=== PATIENT | female | born 1975 | race Caucasian/White ===

== ENCOUNTER 2017-10-28 02:45 | Observation (INO) | payer OTHER ==
[~2017-10-28] VITALS: Ht 170.2 cm; Wt 59.0 kg
[~2017-10-28 02:45] MED LIST: DEXILANT60 MG PO; ZOFRAN ODT4 M1 SL
--- NOTE | 2017-10-28 03:34 | ED GI/GU/ABDOMINAL COMPLAINT ---
History of Present Illness General Chief Complaint: General Adult Stated Complaint: ABD PAIN THAT RADIATES TO BACK PER PT Source: patient, old records Exam Limitations: no limitations Vital Signs & Intake/Output Vital Signs & Intake/Output Vital Signs Date Time Temp Pulse Resp B/P B/P Pulse O2 O2 Flow FiO2 Mean Ox Delivery Rate 10/28 0254 97.5 85 20 131/58 99 Room Air Allergies Coded Allergies: NO KNOWN ALLERGIES (10/05/15) Reconcile Medications Ondansetron (Zofran Odt) 4 MG TAB.RAPDIS 1 TAB SL TID PRN NAUSEA Triage Note: 42YO FEMALETO RM 5 W/CO UPPER ABD PAIN THAT RADIATES TO BACK SINCE TUESDAY. STATES SHE "SAW HER PMD YESTERDAY, HAD BLOODWORKDRAWN AND IS SCHED FOR US NEXT WEEK" Triage Nurses Notes Reviewed? yes LMP (ages 10-50): unknown ? n Is pt currently ? No Onset: Last week Duration: hour(s):, constant, continues in ED Timing: recent history Quality/Severity: aching, moderate, severe Location: epigastric Radiation: back Activities at Onset: sleep Prior Abdominal Problems: none Past Sexual History: Unobtainable at this time Modifying Factors: Improves With: rest. Worsens With: palpation. Associated Symptoms: abdominal pain HPI: 1 week prior to admission patient had episode of epigastric pain described as achy mild to moderate lasting a short period of time and resolving with rest. Prior to admission she woke with moderate to severe epigastric pain waxing and waning radiating to her back. She denies fever chills nausea vomiting diarrhea chest pain cough shortness breath headache dysuria rash bleeding. Past History Travel History Traveled to [place] past 21 day No Medical History Any Pertinent Medical History? 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 No Review of Systems Review of Systems Constitutional: Reports: no symptoms. EENTM: Reports: no symptoms. Respiratory: Reports: no symptoms. Cardiovascular: Reports: no symptoms. GI: Reports: see HPI, abdominal pain. Genitourinary: Reports: no symptoms. Musculoskeletal: Reports: no symptoms. Skin: Reports: no symptoms. Neurological/Psychological: Reports: no symptoms. Hematologic/Endocrine: Reports: no symptoms. Immunologic/Allergic: Reports: no symptoms. All Other Systems: Reviewed and Negative Physical Exam Physical Exam General Appearance: well developed/nourished, alert, awake, anxious, mild distress, thin Head: atraumatic, normal appearance Eyes: Bilateral: normal appearance, PERRL, EOMI, normal inspection. Ears, Nose, Throat, Mouth: hearing grossly normal, moist mucous membrane Neck: normal inspection, supple, full range of motion, normal alignment Respiratory: normal breath sounds, chest non-tender, no respiratory distress, quiet respiration, lungs clear Cardiovascular: regular rate/rhythm, normal peripheral pulses, norml femoral pulses equa Peripheral Pulses: 4+ carotid (R), 4+ carotid (L) Gastrointestinal: normal bowel sounds, soft, non-tender, no organomegaly Back: normal inspection, normal range of motion, no vertebral tenderness Extremities: normal range of motion, no ligament instability Neurologic/Psych: no motor/sensory deficits, awake, alert, oriented x 3, normal gait, normal mood/affect, mental health specialist II-XII nml as tested Skin: intact, normal color, warm/dry Core Measures ACS in differential dx? No Sepsis Present: No Sepsis Focused Exam Completed? No Progress Differential Diagnosis: biliary colic, cholecystitis, gastritis, PUD/GERD Plan of Care: Orders Procedure Date/time Status URINALYSIS 10/28 032 Complete LIPASE 10/28 0324 Complete HUMAN BETA HCG SCREEN 10/28 032 Complete COMPREHENSIVE METABOLIC PANEL 10/28 032 Complete CBC WITHOUT DIFFERENTIAL 10/28 032 Active Current Medications Sig/Praful Start time Last Medication Dose Stop Time Status Admin Dextrose/Sodium 1,000 ML Q8H 10/28 0615 AC Chloride (D5W-1/2 Normal Saline 1000ML) Laboratory Tests 10/28/17 0350: Anion Gap 10, Estimated GFR > 60, BUN/Creatinine Ratio 17.5, Glucose 101 H, Calcium 9.7, Total Bilirubin 0.5, AST 19, ALT 31, Alkaline Phosphatase 48, Total Protein 6.6, Albumin 4.0, Globulin 2.6, Albumin/Globulin Ratio 1.5, Lipase 59, Total Beta HCG NEGATIVE, CBC w Diff Pending, RBC 4.24, MCV 94.3, MCH 32.3 H, MCHC 34.3, RDW 12.5, MPV 8.2, Gran % 77.8 H, Lymphocytes % 11.3 L, Monocytes % 6.5, Eosinophils % 4.2, Basophils % 0.2, Absolute Granulocytes 11.1 H, Absolute Lymphocytes 1.6, Absolute Monocytes 0.9 H, Absolute Eosinophils 0.6, Absolute Basophils 0.0 10/28/17 0341: Urine Color STRAW, Urine Clarity HAZY H, Urine pH 6.5, Ur Specific [place] <= 1.005, Urine Protein NEG, Urine Ketones NEG, Urine Nitrite NEG, Urine Bilirubin NEG, Urine Urobilinogen 0.2, Ur Leukocyte Esterase NEG, Ur Microscopic SEDIMENT EXAMINED, Urine RBC 5-10 H, Ur Epithelial Cells FEW, Urine Bacteria RARE H, Urine Hemoglobin LARGE H, Urine Glucose NEG Diagnostic Imaging: Viewed by Me: CT Scan. Discussed w/RAD: CT Scan. Radiology Impression: Appendicitis with appendicoliths without drainable fluid collections. Moderate amount of pelvic free fluid. Mild bilateral pelviectasis. Initial ED EKG: none Departure Departure Disposition: STILL A PATIENT Condition: Stable Clinical Impression Primary Impression: Appendicitis Referrals: Mich CHAUHAN,Thomas (PCP/Family) Departure Forms: Customer Survey General Discharge Information OR/GI Note Spoke With: Arik CHAUHAN,Brandon Osborne. ED Treatment Decision: LAVERNE PRADHAN requires urgent operative management or an emergent procedure that cannot be performed in the Emergency Room setting. Transport To: [facility]
[2017-10-28 04:12] LABS: ABSOLUTE EOSINOPHIL COUNT 0.6 /CUMM (0.0-0.7); ABSOLUTE GRANULOCYTE CT 11.1 /CUMM (1.4-6.5); ABSOLUTE LYMPH COUNT 1.6 /CUMM (1.2-3.4); ABSOLUTE MONOCYTE COUNT 0.9 /CUMM (0.10-0.60); BASOPHIL % 0.2 % (0.0-2.0); EOSINOPHIL % 4.2 % (0-5); GRANULOCYTE % 77.8 % (42.2-75.2); HEMATOCRIT 39.9 % (37-47); MEAN CORPUSCULAR HGB 32.3 PG (27.0-31.0); MEAN CORPUSCULAR HGB CONC 34.3 G/DL (33.0-37.0); MEAN CORPUSCULAR VOLUME 94.3 FL (81.0-99.0); MEAN PLATELET VOLUME 8.2 FL (7.4-10.4); PLATELET COUNT 313 /CUMM (130-400); RBC DISTRIBUTION WIDTH 12.5 % (11.5-14.5); RED BLOOD CELL CT 4.24 /CUMM (4.20-5.40); WHITE BLOOD CELL COUNT 14.2 /CUMM (4.8-10.8)
--- NOTE | 2017-10-28 05:26 | CT SCAN REPORT ---
EXAMINATION: CT ABDOMEN AND PELVIS WITH CONTRAST CLINICAL INFORMATION: Right-sided pain. COMPARISON: October 06, 2015. TECHNIQUE: Contiguous axial thin section helical images of the abdomen and pelvis were performed following the administration of 95 mL of intravenous Optiray 320. The data set was reformatted in the coronal and sagittal planes and reviewed on an independent workstation. DLP: 270 mGy-cm. FINDINGS: The visualized lung bases are clear. The visualized portions of the heart are unremarkable. The liver is of normal size and attenuation without focal lesions nor intrahepatic biliary ductal dilation. A normal gallbladder is identified. There is no wall thickening or discernible pericholecystic fluid. The spleen, pancreas, adrenal glands are unremarkable. Both kidneys are of normal size and attenuation without nephrolithiasis. There is mild bilateral pelviectasis. Following the administration of IV contrast, prompt symmetric nephrograms are displayed. There is no abdominal free fluid. There is neither mesenteric nor retroperitoneal lymphadenopathy. The appendix is distended measuring 11 mm. There is wall enhancement along with a small appendicolith. There is adjacent mesenteric fat stranding. There are no drainable fluid collections. Otherwise, unremarkable unopacified loops of small and large bowel are identified. There is a moderate amount of pelvic free fluid. There is a 15 mm right ovarian cyst present. The urinary bladder is unremarkable. There is neither pelvic nor inguinal lymphadenopathy. Bone windows: Neither sclerotic nor lytic bone lesions are identified. IMPRESSION: Appendicitis with appendicoliths without drainable fluid collections. Moderate amount of pelvic free fluid. Mild bilateral pelviectasis.
--- NOTE | 2017-10-28 09:45 | History & Physical Pre-Op ---
General Information and HPI History of Present Illness: CC: abdominal pain HPI: 42-year-old no medications nondiabetic nonsmoker very healthy exercises not overweight no irregular bowel movements no family history appendicitis for a few weeks she's had some upper abdominal pain both sides not related to any GI symptoms and this would come and go she would notice it which did sit ups but this morning was Lower quadrant pain severe that she came to the emergency room not sure if these are related. She had a cold recently couple of months ago with antibiotics no recent changes in bowel habits weight or appetite. . I've reviewed the [facility]. No history of GERD, PUD, bleeding problems, heart disease or issues with anesthesia. 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 Surgical History Pertinent Surgical History: non-contributory Past Family/Social History Psychosocial History ETOH Use: denies use Exam & Diagnostic Data Last 24 Hrs of Vital Signs/I&O I reviewed Vital Signs Date Time Temp Pulse Resp B/P B/P Pulse O2 O2 Flow FiO2 Mean Ox Delivery Rate 10/28 0834 98.8 68 18 105/57 99 10/28 0254 97.5 85 20 131/58 99 Room Air I reviewed Intake & Output 10/28 1600 10/28 0800 10/28 0000 Intake Total 100 Output Total Balance 100 Intake, IV 100 Patient 130 lb Weight Physical Exam: Constitutional: pleasant, no acute distress, conversant Eyes: sclera anicteric ENMT: ears and nose atraumatic, moist mucous membranes, good dentition, no lip lesions Neck: Supple, trachea is midline, no cervical or supraclavicular adenopathy and no palpable thyromegaly Cardiovascular: S1, S2, no murmurs, no peripheral edema Respiratory: clear to auscultation with normal respiratory effort and no intercostal retractions GI: abdomen soft, McBurney's point tenderness no rebound, nondistended, no palpable hepatosplenomegaly Extremities / lymphatics: symmetrically warm, free range of motion no peripheral edema, no cervical, supraclavicular, axillary, or inguinal adenopathy Musculoskeletal: Did not evaluate gait and station, no digital cyanosis, good muscle strength and tone no atrophy, motor grossly 5 out of 5 throughout Skin: no jaundice, no rashes warm, nondiaphoretic, no areas of erythema or induration Psychiatric: mood and affect are appropriate and alert and oriented to person place and time Last 24 Hrs of Labs/Jesus: I reviewed Laboratory Tests 10/28/17 0350: Anion Gap 10, Estimated GFR > 60, BUN/Creatinine Ratio 17.5, Glucose 101 H, Calcium 9.7, Total Bilirubin 0.5, AST 19, ALT 31, Alkaline Phosphatase 48, Total Protein 6.6, Albumin 4.0, Globulin 2.6, Albumin/Globulin Ratio 1.5, Lipase 59, Total Beta HCG NEGATIVE, CBC w Diff NO MAN DIFF REQ, RBC 4.24, MCV 94.3, MCH 32.3 H, MCHC 34.3, RDW 12.5, MPV 8.2, Gran % 77.8 H, Lymphocytes % 11.3 L, Monocytes % 6.5, Eosinophils % 4.2, Basophils % 0.2, Absolute Granulocytes 11.1 H, Absolute Lymphocytes 1.6, Absolute Monocytes 0.9 H, Absolute Eosinophils 0.6 , Absolute Basophils 0.0 10/28/17 0341: Urine Color STRAW, Urine Clarity HAZY H, Urine pH 6.5, Ur Specific [place] <= 1.005, Urine Protein NEG, Urine Ketones NEG, Urine Nitrite NEG, Urine Bilirubin NEG, Urine Urobilinogen 0.2, Ur Leukocyte Esterase NEG, Ur Microscopic SEDIMENT EXAMINED, Urine RBC 5-10 H, Ur Epithelial Cells FEW, Urine Bacteria RARE H, Urine Hemoglobin LARGE H, Urine Glucose NEG Assessment/Plan Assessment/Plan: I reviewed today's CT scan on PACS myself showing a dilated thickened inflamed appendix with appendicolith and surrounding inflammation Impression is acute appendicitis, concern is whether this is a phlegmon from a weeks of developing though Y Nir she not notice earlier. This one might be harder to remove because of the adhesions fibrosis. I explained to the patient that this is a potentially life-threatening infection for which I recommend an appendectomy. I feel antibiotics often alone are not enough and sometimes there is an occult malignancy. The severity of infection is related to the chance of perforation which usually increases after about 24 hours fortunately the patient is presenting earlier. Depending on what we find intraoperatively they may be discharged the same day or may need to stay for more IV antibiotics, at depends. I also discussed the possibility of a postoperative infection whether superficial or deep, this is also related to the initial severity and may also appear even a week later after an initial interval of well-being during the recovery. I explained the operation we usually do it laparoscopically rarely converting to open, depending on the amount of inflammation and whether the anatomy is very unusual all to avoid inadvertent injury to surrounding surrounding structures such as bowel and blood vessels and ureter. We also discussed the potential risks, benefits and alternatives to the procedure and surgery in general, issues that included but were not limited to, anesthetic risks hemorrhage requiring transfusion, the risk of transfusion itself, infection, heart attack, stroke, . . As Ranked By This Provider Problem List: 1. Appendicitis
--- NOTE | 2017-10-28 12:36 | Patient Discharge Instructions ---
Discharge Instructions General Discharge Information You were seen/treated for: ACUTE APPENDICITIS You had these procedures: LAPAROSCOPIC APPENDECTOMY (10/28/17) Watch for these problems: FEVER>101.3, INCREASED PAIN, REDNESS/SWELLING/DRAINAGE No bath, but you may shower: Yes Other wound care: OK TO REMOVE BANDAIDS IN 24 HOURS. [address]AVE WHITE STERI STRIPS IN PLACE. KEEP INCISIONS CLEAN & DRY. Diet Continue normal diet: No Recommended Diet: Regular Activity Full Activity/No Limits: No Activity Self Limited: Yes Pounds, do NOT lift more than: 10 Other activity limits: NO HEAVY LIFTING. NO STRENUOUS ACTIVITY. Acute Coronary Syndrome Inclusion Criteria At DC or during hospital stay patient has or had the following: ACS DIAGNOSIS No Discharge Core Measures Meds if any: Prescribed or Continued at Discharge Meds if any: NOT Prescribed or Continued at Discharge Congestive Heart Failure Inclusion Criteria At DC or during hospital stay patient has or had the following: CHF DIAGNOSIS No Discharge Core Measures Meds if any: Prescribed or Continued at Discharge Meds if any: NOT Prescribed or Continued at Discharge Cerebrovascular accident Inclusion Criteria At DC or during hospital stay patient has or had the following: CVA/TIA Diagnosis No Discharge Core Measures Meds if any: Prescribed or Continued at Discharge Meds if any: NOT Prescribed or Continued at Discharge Venous thromboembolism Inclusion Criteria VTE Diagnosis No VTE Type NONE VTE Confirmed by (Test) NONE Discharge Core Measures - Per Current guidelines, there needs to be overlap - treatment for the first 5 days of Warfarin therapy. - If discharged on Warfarin prior to 5 days of - overlap therapy, the patient will need to be - assessed for post discharge needs including - *Post discharge parental anticoagulation - *Warfarin and/or parental anticoagulation education - *Follow up date to check INR post discharge At least 5 days overlap therapy as Inpatient No Meds if any: Prescribed or Continued at Discharge Note: Overlap Therapy is Warfarin and Anticoagulant Meds if any: NOT Prescribed or Continued at Discharge
[2017-10-28] MEDS ORDERED: PERCOCET 5-3251 EACH PO (12:37)
--- NOTE | 2017-10-28 16:07 | PN-Observation ---
Observation Note Observation Note _ I have personally examined LAVERNE PRADHAN. her disposition is uncertain at this time. Before a determination can be made, she requires continued observation for the following reasons [ACUTE APPENDICITIS S/P LAPAROSCOPIC APPENDECTOMY, SLOW DIET ADVANCEMENT TOLERATED]. Assessment/Plan Medical Assessment: 42 YEAR OLD FEMALE WITH ACUTE APPENDICITIS S/P LAPAROSCOPIC APPENDECTOMY, SLOW DIET ADVANCEMENT POST-OP TO BE PLACED IN OBSERVATION STATUS Problem List: 1. Acute appendicitis 2. S/P laparoscopic appendectomy Plan: CLEARS TONIGHT TOLERATED CONTINUE IV FLUIDS UNTIL TOLERATING CLEARS MAY CONSIDER DIET ADVANCEMENT IN THE MORNING IF TOLERATING CLEARS IV UNASYN X 2 DOSES POST-OP OOB/AMBULATION HEP SC - DVT PPX F/U LABS IN AM D/W DVT/Prophylaxis: mechanical, pharmacological Discharge Plan Discharge Disposition: home Stable for Discharge? No Anticipated Discharge (Day): tomorrow If Discharged Today/In 24 Hrs: enter ant[facility] discharge ord, W-10/discharge paper done, CMR done Subjective Review of Systems Constitutional: Reports: see HPI. Objective Last 24 Hrs of Vital Signs/I&O Vital Signs Date Time Temp Pulse Resp B/P B/P Pulse O2 O2 Flow FiO2 Mean Ox Delivery Rate 10/28 1151 97.8 75 18 109/56 100 Room Air 10/28 1030 98.0 74 18 108/70 98 Room Air 10/28 0834 98.8 68 18 105/57 99 10/28 0254 97.5 85 20 131/58 99 Room Air Intake & Output 10/28 1600 10/28 0800 10/28 0000 Intake Total 100 Output Total Balance 100 Intake, IV 100 Patient 130 lb Weight Physical Exam General Appearance: SEE H&P Current Medications: Current Medications Sig/Praful Start time Last Medication Dose Route Stop Time Status Admin Acetaminophen 1,000 MG Q6H 10/28 2000 UNVr N/A 1 UNIT IV 10/29 1414 Acetaminophen 0 .STK-MED ONE 10/28 0342 DC IV Acetaminophen 1,000 MG ONCE ONE 10/28 0330 DC 10/28 IV 10/28 0331 0355 Ampicillin Sodium/ 3,000 MG Q6 10/28 1800 UNVr Sulbactam Sodium IV 10/29 0028 Sodium Chloride 100 ML Ampicillin Sodium/ 0 .STK-MED ONE 10/28 0621 DC Sulbactam Sodium .ROUTE Ampicillin Sodium/ 3,000 MG ONCE ONE 10/28 0545 DC 10/28 Sulbactam Sodium IV 10/28 0614 0620 Sodium Chloride 100 ML Dextrose/Sodium 1,000 ML Q10H 10/28 1600 UNVr Chloride IV Dextrose/Sodium 1,000 ML Q8H 10/28 0615 DC 10/28 Chloride IV 0619 Famotidine 0 .STK-MED ONE 10/28 0343 DC IV Famotidine 20 MG ONCE ONE 10/28 0330 DC 10/28 IV 10/28 0331 0355 Heparin Sodium 5,000 UNIT Q8 10/28 2200 UNVr (Porcine) SC Morphine Sulfate 2 MG Q4-6 PRN PRN 10/28 1600 UNVr IV Oxycodone HCl 5 MG Q4-6 PRN PRN 10/28 1600 UNVr PO Oxycodone HCl 10 MG Q4-6 PRN PRN 10/28 1600 UNVr PO Last 24 Hrs of Labs/Mics: Laboratory Tests 10/28/17349: Anion Gap 10, Estimated GFR > 60, BUN/Creatinine Ratio 17.5, Glucose 101 H, Calcium 9.7, Total Bilirubin 0.5, AST 19, ALT 31, Alkaline Phosphatase 48, Total Protein 6.6, Albumin 4.0, Globulin 2.6, Albumin/Globulin Ratio 1.5, Lipase 59, Total Beta HCG NEGATIVE, CBC w Diff NO MAN DIFF REQ, RBC 4.24, MCV 94.3, MCH 32.3 H, MCHC 34.3, RDW 12.5, MPV 8.2, Gran % 77.8 H, Lymphocytes % 11.3 L, Monocytes % 6.5, Eosinophils % 4.2, Basophils % 0.2, Absolute Granulocytes 11.1 H, Absolute Lymphocytes 1.6, Absolute Monocytes 0.9 H, Absolute Eosinophils 0.6 , Absolute Basophils 0.0 10/28/17340: Urine Color STRAW, Urine Clarity HAZY H, Urine pH 6.5, Ur Specific [place] <= 1.005, Urine Protein NEG, Urine Ketones NEG, Urine Nitrite NEG, Urine Bilirubin NEG, Urine Urobilinogen 0.2, Ur Leukocyte Esterase NEG, Ur Microscopic SEDIMENT EXAMINED, Urine RBC 5-10 H, Ur Epithelial Cells FEW, Urine Bacteria RARE H, Urine Hemoglobin LARGE H, Urine Glucose NEG
--- NOTE | 2017-10-28 16:58 | PN- General Surgery ---
Subjective Subjective: Postop check: Patient is sleepy but arousable, with mild complaints of pain. No nausea no vomiting no fever. Objective Vital Signs and I&Os Vital Signs Date Time Temp Pulse Resp B/P B/P Pulse O2 O2 Flow FiO2 Mean Ox Delivery Rate 10/28 1151 97.8 75 18 109/56 100 Room Air 10/28 1030 98.0 74 18 108/70 98 Room Air 10/28 0834 98.8 68 18 105/57 99 10/28 0254 97.5 85 20 131/58 99 Room Air Intake & Output 10/28 1600 10/28 0800 10/28 0000 10/27 1600 10/27 0800 10/27 0000 Intake Total 100 Output Total Balance 100 Intake, IV 100 Patient 130 lb Weight Vital signs stable, afebrile in the recovery room Physical Exam: Well-developed well-nourished no apparent distress. HEENT: Atraumatic, extraocular motion intact Neck: Supple, no lymphadenopathy Respiratory: No respiratory distress Abdomen: Appropriate tenderness noted. Dressings clean dry and intact. No significant distention. Extremities: No edema, no calf pain Neuro: Alert and oriented x3 Psych: Mood affect normal, normal memory normal judgment. Skin: Warm and dry, no rash on exposed skin Assessment/Plan Assessment/Plan Postop day #0 status post laparoscopic appendectomy for acute appendicitis. Placed in observation for continued monitoring due to significant inflammation of the cecum associated with acute appendicitis. Will need to slowly advance diet and monitor infectious symptoms Perioperative antibiotics. Pain medication as needed. Out of bed IV fluids until tolerating adequate p.o. Clear liquid diet Follow a.m. labs Heparin subcutaneous for DVT prophylaxis ALPS for DVT prophylaxis Core Measures Venous Thromboembolism VTE Risk Factors Age>40 No Mechanical VTE Prophylaxis d/t N/A MechProphylax Ordered No VTE Pharm Prophylaxis d/t NA PharmProphylax ordered
[2017-10-28 17:30] VITALS: BP 110/64
[2017-10-28 20:30] VITALS: BP 110/60
[2017-10-28 22:30] VITALS: BP 112/60
[2017-10-29 01:25] VITALS: BP 122/68
[2017-10-29 01:33] VITALS: BP 104/62
[2017-10-29 04:41] VITALS: BP 101/64
--- NOTE | 2017-10-29 08:59 | PN- General Surgery ---
Subjective Subjective: Patient reports pain controlled. Has not required narcotics. Tolerating a diet w /o nausea or vomiting. Ambulating oob to void. Offers no other complaints. Objective Vital Signs and I&Os Vital Signs Date Time Temp Pulse Resp B/P B/P Pulse O2 O2 Flow FiO2 Mean Ox Delivery Rate 10/29 0441 98.1 77 20 101/64 98 10/29 0133 98.1 85 20 104/62 97 10/28 2230 98.1 87 20 112/60 96 Room Air 10/28 2030 97.4 83 20 110/60 98 Room Air 10/28 1730 98.9 76 16 110/64 98 Room Air 10/28 1151 97.8 75 18 109/56 100 Room Air 10/28 1030 98.0 74 18 108/70 98 Room Air Intake & Output 10/29 1600 10/29 0800 10/29 0000 10/28 1600 10/28 0800 10/28 0000 Intake Total 1160 700 100 Output Total 400 400 Balance 760 300 100 Intake, IV 800 700 100 Intake, Oral 360 Output, Urine 400 400 Patient 130 lb 130 lb Weight Physical Exam: Gen - nad Cardiac - S1S2 noted Lungs - CTAB Abd - soft, bs presents, dressings c/d/i appropriately tender no rebound or guarding Ext - no edema or calf pain, alps in place Current Medications: Current Medications Sig/Praful Start time Last Medication Dose Route Stop Time Status Admin Acetaminophen 1,000 MG Q6H 10/28 2000 10/29 N/A 1 UNIT IV 10/29 1414 0808 Ampicillin Sodium/ 3,000 MG Q6 10/29 0200 10/29 Sulbactam Sodium IV 10/29 0229 0146 Sodium Chloride 100 ML Ampicillin Sodium/ 3,000 MG Q6 10/28 1800 DC 10/28 Sulbactam Sodium IV 10/29 0028 2021 Sodium Chloride 100 ML Dextrose/Sodium 1,000 ML Q10H 10/28 1600 10/29 Chloride IV 0146 Dextrose/Sodium 1,000 ML Q8H 10/28 0615 DC 10/28 Chloride IV 0619 Heparin Sodium 5,000 UNIT Q8 10/28 2200 AC 10/29 (Porcine) SC 0632 Morphine Sulfate 2 MG Q4-6 PRN PRN 10/28 1600 AC IV Ondansetron HCl 4 MG ONCE ONE 10/28 2300 DC 10/28 IV 10/28 Oxycodone HCl 5 MG Q4-6 PRN PRN 10/28 1600 AC PO Oxycodone HCl 10 MG Q4-6 PRN PRN 10/28 1600 AC PO Results Last 48 Hours of Labs: Laboratory Tests 10/28 10/28 0350 0341 Chemistry Sodium (137 - 145 mmol/L) 140 Potassium (3.5 - 5.1 mmol/L) 4.2 Chloride (98 - 107 mmol/L) 103 Carbon Dioxide (22 - 30 mmol/L) 27 Anion Gap (5 - 16) 10 BUN (7 - 17 mg/dL) 14 Creatinine (0.5 - 1.0 mg/dL) 0.8 Estimated GFR (>60 ml/min) > 60 BUN/Creatinine Ratio (7 - 25 %) 17.5 Glucose (65 - 99 mg/dL) 101 H Calcium (8.4 - 10.2 mg/dL) 9.7 Total Bilirubin (0.2 - 1.3 mg/dL) 0.5 AST (14 - 36 U/L) 19 ALT (9 - 52 U/L) 31 Alkaline Phosphatase (<127 U/L) 48 Total Protein (6.3 - 8.2 g/dL) 6.6 Albumin (3.5 - 5.0 g/dL) 4.0 Globulin (1.9 - 4.2 gm/dL) 2.6 Albumin/Globulin Ratio (1.1 - 2.2 %) 1.5 Lipase (23 - 300 U/L) 59 Total Beta HCG (NEGATIVE) NEGATIVE Hematology CBC w Diff NO MAN DIFF REQ WBC (4.8 - 10.8 /CUMM) 14.2 H RBC (4.20 - 5.40 /CUMM) 4.24 Hgb (12.0 - 16.0 G/DL) 13.7 Hct (37 - 47 %) 39.9 MCV (81.0 - 99.0 FL) 94.3 MCH (27.0 - 31.0 PG) 32.3 H MCHC (33.0 - 37.0 G/DL) 34.3 RDW (11.5 - 14.5 %) 12.5 Plt Count (130 - 400 /CUMM) 313 MPV (7.4 - 10.4 FL) 8.2 Gran % (42.2 - 75.2 %) 77.8 H Lymphocytes % (20.5 - 51.1 %) 11.3 L Monocytes % (1.7 - 9.3 %) 6.5 Eosinophils % (0 - 5 %) 4.2 Basophils % (0.0 - 2.0 %) 0.2 Absolute Granulocytes (1.4 - 6.5 /CUMM) 11.1 H Absolute Lymphocytes (1.2 - 3.4 /CUMM) 1.6 Absolute Monocytes (0.10 - 0.60 /CUMM) 0.9 H Absolute Eosinophils (0.0 - 0.7 /CUMM) 0.6 Absolute Basophils (0.0 - 0.2 /CUMM) 0.0 Urines Urine Color (YEL,AMB,STR) STRAW Urine Clarity (CLEAR) HAZY H Urine pH (5.0 - 8.0) 6.5 Ur Specific Marvin (1.001 - 1.035) <= 1.005 Urine Protein (NEG,<30 MG/DL) NEG Urine Ketones (NEG) NEG Urine Nitrite (NEG) NEG Urine Bilirubin (NEG) NEG Urine Urobilinogen (0.1 - 1.0 EU/dl) 0.2 Ur Leukocyte Esterase (NEG) NEG Ur Microscopic SEDIMENT EXAMINED Urine RBC (0 - 5 /HPF) 5-10 H Ur Epithelial Cells (NONE,FEW) FEW Urine Bacteria (NEG/NONE) RARE H Urine Hemoglobin (NEG) LARGE H Urine Glucose (N MG/DL) NEG Assessment/Plan Assessment/Plan 42 F POD 1 s/p lap appy, recovering well stable for discharge Cont current care Pain regimen prn, d/v IVF Cont clears advance to regular diet slowly at home Encourage ambulation D/c meds/instructions explained in detail Observation status due to expected discharge today Seen and discussed with Dr. Elise Core Measures Venous Thromboembolism VTE Risk Factors Age>40 No Mechanical VTE Prophylaxis d/t N/A MechProphylax Ordered No VTE Pharm Prophylaxis d/t NA PharmProphylax ordered
--- NOTE | 2017-10-29 09:35 | Operative Report ---
Operative/Inv Procedure Report Surgery Date: 10/28/17 Name of Procedure: Laparoscopic appendectomy Pre-Operative Diagnosis: Acute appendicitis Post-Operative Diagnosis: Same Estimated Blood Loss: scant Surgeon/Door Installer: Arik CHAUHAN,Brandon MCGOWAN Anesthesia: general endotracheal tube Operative/Procedure Note Note: Findings The appendix was acutely inflamed but the base was particularly thickened including the cecum we reviewed the films with the radiologist it did not look like a tumor just more edema, and some fibrosis. We needed to use the larger shayy purple cartridge to divide the mesentery several firings and then try to thin out the base of the appendix which eventually we were successful at and reinspected that particular staple line numerous times make sure it was intact. Patient was placed on the OR table in the supine position. After successful induction of general anesthesia the patient's abdomen was prepped clipped and draped in the usual sterile fashion The left arm was tucked. Local anesthetic was injected at the top of the umbilicus and entry into the peritoneum was established via the open Pringle technique: a one cm curved incision was made at the top of the umbilicus, the linea alba was secured between 2 pediatric Gaviota clamps and incised vertically, 0-Vicryl stay sutures were placed on each side and then while retracting upwards, the peritoneal layer was entered sharply, then through that small opening, using an S retractor acting like a shoehorn, a 10 mm blunt trocar was inserted obliquely to the right and secured with the stay sutures. The gas was turned on to maximum of 15 mm, two 5 mm dissecting ports were then inserted, one suprapubic and one left lower quadrant, laterally. We used a local anesthetic needle to guide their trajectories, particular attention was given to avoid injury to the bowel, the bladder and the epigastric vessels. Then our attention was directed to the right lower quadrant, the small bowel was swept superiorly and medially, revealing the base of the cecum. An inflamed appendix was then mobilized by it from the lateral and inferior peritoneal attachments using cautery. Using a combination of a [place] dissector, peanut dissector and a Denis clamp, a window was developed between the mesoappendix and the base of the appendix, the dissection was more involved as mentioned above because of the significant inflammation at the base of the appendix onto the cecum. This window is then used to divide the appendix at the base and the mesoappendix with a linear stapling device, separately, using an intestinal cartridge for the appendix and a vascular cartridge for the mesoappendix; the division of the appendix includes a small flange of cecal base. The appendix is lowered into an Endobag and set aside. The staple lines were checked for bleeding and small oozing was controlled with light zaps of the cautery. We deliberately irrigate the area including up by the liver and down in the pelvis, several rounds, checking the staple lines and each time to make sure that there is no ongoing bleeding. Next the instruments and the trochars and Endobag are removed, letting the gas out. We closed the umbilical fascial incision with a [id number] vicryl suture, then the 3 skin incisions are closed with multiple interrupted subcuticular 4-0 Biosyn sutures, 3 for the umbilical, 1 each for the smaller ones, then covered with Mastisol, Steri-Strips and Band-Aids. EBL minimal Lap and sponge and sponge counts: correct Wound expectancy: infected IV fluids: crystalloid Complications: none Patient tolerated the procedure well was awakened and extubated and returned to the recovery room in satisfactory condition.
[2017-10-29] MEDS ORDERED: PERCOCET 5-3251 EACH PO ×2 (09:45→09:55)
[2017-10-29 10:23] LABS: ABSOLUTE BASOPHIL COUNT 0 /CUMM (0.0-0.2); ABSOLUTE EOSINOPHIL COUNT 0 /CUMM (0.0-0.7); ABSOLUTE GRANULOCYTE CT 17.5 /CUMM (1.4-6.5); ABSOLUTE LYMPH COUNT 1.3 /CUMM (1.2-3.4); ABSOLUTE MONOCYTE COUNT 1.2 /CUMM (0.10-0.60); BASOPHIL % 0 % (0.0-2.0); EOSINOPHIL % 0 % (0-5); GRANULOCYTE % 87.6 % (42.2-75.2); HEMATOCRIT 36.2 % (37-47); MEAN CORPUSCULAR HGB 32.1 PG (27.0-31.0); MEAN CORPUSCULAR HGB CONC 33.9 G/DL (33.0-37.0); MEAN CORPUSCULAR VOLUME 94.8 FL (81.0-99.0); MEAN PLATELET VOLUME 8.3 FL (7.4-10.4); PLATELET COUNT 292 /CUMM (130-400); RED BLOOD CELL CT 3.82 /CUMM (4.20-5.40)
== END 2017-10-29 13:00 ==
LOC: ERH 02:45 → ER-OR 02:52 → ERH 02:52 → PACUH 15:46 → EDBEDREQ 16:57 → ENRESERV 17:29 → ENTRNSPT 17:58 → EDTRNSPTSTS 18:05 → 2NA 18:12 → CMPTRNSPT 18:34 → ENPENDDIS 10-29 11:29 → 2NA 10-29 13:00
PROVIDERS: Emergency Medicine; Physician Assistant
DX: K35.80 Unspecified acute appendicitis (principal)
CPT/HCPCS: 6030; 36592; 74177; 81001; 82436; 88304; 96372; 96374; 96375; G0378; J0131; J1170; J1644; J2250; J2405; J3010; J7042